=== PATIENT | male | born 1995 | race Caucasian/White ===

== ENCOUNTER 2016-11-05 01:44 | Emergency (ER) | payer BC ==
[~2016-11-05] VITALS: Ht 172.7 cm; Wt 70.5 kg
[~2016-11-05 01:44] MED LIST: NORCO 325 MG-51 TAB PO; ZOFRAN 4MG T4 MG/TAB PO
[2016-11-05 01:50] VITALS: TEMP 99
[2016-11-05 02:12] LABS: BASO # 0.1 (0.0-0.2); BASO % 0.7 % (0.0-2.0); EOS # 0.8 (0.0-0.7); EOS % 8.1 % (0-4.0); GRAN # 4.8 (1.4-6.5); GRAN % 46.6 % (42.2-75.2); HEMATOCRIT 42.5 % (36.0-47.0); HEMOGLOBIN 14.9 g/dl (12.5-16.1); LYMPH # 3.6 (1.2-3.4); LYMPH % 35.1 % (20.0-51.0); MEAN CELL VOLUME 86 fl (80.0-95.0); MEAN CORPUSCULAR HEMOGLOBIN 30 pg (26.0-32.0); MEAN CORPUSCULAR HGB CONC 35 g/dl (33.0-37.0); MEAN PLATELET VOLUME 10.5 fl (7.4-10.4); MONO % 9.3 % (1.7-9.3); PLATELET COUNT 229 K/mm3 (130-400); RED BLOOD COUNT 4.94 M/mm3 (4.20-5.60); REDCELL DISTRIBUTION WIDTH-CV 12.3 % (11.5-14.5); WHITE BLOOD COUNT 10.4 K/mm3 (4.8-10.8)
[2016-11-05 02:21] LABS: ADJUSTED CALCIUM 9.6 mg/dL (8.4-10.2); ALANINE AMINOTRANSFERASE 39 U/L (21-72); ALBUMIN 4.6 gm/dL (3.5-5.0); ALKALINE PHOSPHATASE 91 U/L (50-136); ANION GAP 15 mmol/L (7-16); BILIRUBIN,TOTAL 0.9 mg/dL (0.0-1.0); BLOOD UREA NITROGEN 13 mg/dL (9-20); CALCIUM 10.1 mg/dL (8.4-10.2); CARBON DIOXIDE 22 mmol/L (22-30); CHLORIDE 104 mmol/L (98-107); CREATININE, serum 1.09 mg/dL (0.66-1.25); GLUCOSE 97 mg/dL (74-106); LIPASE 111 U/L (23-300); POTASSIUM 3.9 mmol/L (3.4-5.0); SODIUM 141 mmol/L (137-145); TOTAL PROTEIN 7.6 gm/dL (6.4-8.2)
[2016-11-05 03:06] LABS: C-REACTIVE PROTEIN < 0.5 mg/dL (0.0-0.9)
[2016-11-05 05:29] VITALS: BP 124/68; PULSE 78
== END 2016-11-05 05:31 | disposition home or self-care (01) ==
LOC: COL.ER 01:44
PROVIDERS: Family Medicine
DX: R10.12 Left upper quadrant pain (principal); K59.00 Constipation, unspecified; R11.0 Nausea
CPT/HCPCS: J1170; J1885; J2060; J2405; J2550; J7030; Q9967

== ENCOUNTER 2019-03-04 11:41 | Emergency (ER) | payer OTHER ==
[~2019-03-04] VITALS: Ht 172.7 cm; Wt 72.7 kg
[2019-03-04 11:48] VITALS: BP 123/76; TEMP 98.3
[2019-03-04] MEDS ORDERED: ZOFRAN ODT4 MG PO (13:41)
[2019-03-04 13:55] VITALS: PULSE 101
== END 2019-03-04 13:57 | disposition home or self-care (01) ==
LOC: COL.ER 11:41
DX: K52.9 Noninfective gastroenteritis and colitis, unspecified (principal)
CPT/HCPCS: J0780; J7030